=== PATIENT | female | born 1990 | race Caucasian/White ===

== ENCOUNTER → 2018-11-13 | Outpatient (CLI) | payer OTHER ==
[~2018-11-13] MED LIST: ADAL40PE4 SQ; BUTA1CAP4 PO; CYCL10TA29 PO; ETAN50DI5 SQ; OXYC-869 PO; [UNRECOGNIZED DRUG - CODE] PO
[2018-11-13 08:54] LABS: PLATELET COUNT, AUTOMATED 310 K/uL (150-450)
== END ==
LOC: LAB 07:52
PROVIDERS: ATTEND Student in an Organized Health Care Education/Training Program
DX: Z34.91 Encounter for supervision of normal pregnancy, unspecified, first trimester (principal); B96.89 Other specified bacterial agents as the cause of diseases classified elsewhere
CPT/HCPCS: 36415; 81001; 85025; 86592; 86703; 86762; 86850; 86900; 86901; 87088; 87340

== ENCOUNTER → 2019-02-11 | Outpatient (CLI) | payer OTHER ==
[~2019-02-11] MED LIST changes: +NITR-105 PO
--- NOTE | 2019-02-11 13:19 | RADIOLOGY IMAGING REPORT ---
FACILITY: [facility] PATIENT NAME: Nataly Santiago : 1990 MR: [id number] V: [id number] EXAM DATE: ORDERING PHYSICIAN: MAHI CHAMBERS TECHNOLOGIST: [place] [facility] [place]y [place] : 1990 Visit/Account:[id number] Date of Sevice: 02/11/2019 EXAMINATION: Ultrasound transabdominal OB > 14 weeks with anatomic evaluation HISTORY: 20 week anatomical survey COMPARISON: None. TECHNIQUE: Transabdominal imaging was performed for assessment of the fetus and maternal pelvic structures. T ransvaginal imaging was not performed. FINDINGS: Placenta: Anterior without previa. Uterus: Gravid, otherwise normal Cervix: Long and closed. Maternal Ovaries: Not visualized. Maternal and other adnexa findings: Not visualized Intrauterine gestations: One. presentation: Variable heart rate: Normal and regular at 143 bpm Amniotic fluid index: 9.13 cm Largest amniotic fluid pocket: 2.89 cm Gestational Parameters: BPD: 5.01 cm 21 weeks/ two days, 78% HC: 18.95 cm 21 weeks/ two days, 77% AC: 16.08 cm 21 weeks/ two days, 69% FL: 3.36 cm 20 weeks/ four days, 45% Average ultrasound age (AUA): 21 weeks/one days, DANIA 06/23/2019 Estimated gestational age by DANIA: 20 weeks/three days, DANIA 06/28/2019 Estimated weight (EFW): 387 grams +/- 57 grams EFW for DANIA: 73 percentile Anatomic Survey: Intracranial structures, 4-chamber heart, stomach, kidneys, urinary bladder, spine, 3-vessel cord and cord insertion are unremarkable. Two upper and two lower extremities visualized. Cardiac ventricula r outflow tracts, palate and lips are unremarkable in appearance. IMPRESSION: Single viable fetus in viable presentation with an estimated gestational age by measurem ents of 21 weeks and zero days. Estimated gestational age by LMP is 20 weeks and three days. Estima christi weight is 387 g consistent with the 73rd percentile Report Dictated By: Margoth Ellison MD at 02/11/2019 1:09 PM Report E-Signed By: Margoth Ellison MD at 02/11/2019 1:14 PM WSN:[email or web address]
== END ==
LOC: US 10:50
PROVIDERS: ATTEND Student in an Organized Health Care Education/Training Program
DX: Z02.9 Encounter for administrative examinations, unspecified (principal)

== ENCOUNTER → 2019-04-05 | Outpatient (CLI) | payer OTHER ==
[2019-04-05 12:36] LABS: PLATELET COUNT, AUTOMATED 275 K/uL (150-450)
== END ==
LOC: LAB 08:09
PROVIDERS: ATTEND Student in an Organized Health Care Education/Training Program
DX: Z34.92 Encounter for supervision of normal pregnancy, unspecified, second trimester (principal)
CPT/HCPCS: 36415; 82950; 85025

== ENCOUNTER → 2019-05-28 | Outpatient (CLI) | payer OTHER ==
[~2019-05-28] MED LIST changes: +BET6I IM ONLY; +DIPH0.5S2 IM; +PREN-127 PO
== END ==
LOC: LAB 12:23
PROVIDERS: ATTEND Obstetrics & Gynecology
DX: Z36.85 Encounter for antenatal screening for Streptococcus B (principal)
CPT/HCPCS: 36415; 82040; 82247; 82310; 82374; 82435; 82565; 82570; 82947; 84075; 84132; 84155; 84156; 84295; 84450; 84460; 84520; 85027; 87081

== ENCOUNTER → 2019-05-31 | Outpatient (CLI) | payer OTHER ==
--- NOTE | 2019-05-31 13:25 | RADIOLOGY IMAGING REPORT ---
FACILITY: [facility] PATIENT NAME: Nataly Santiago : 1990 MR: [id number] V: [id number] EXAM DATE: ORDERING PHYSICIAN: DARWIN EM TECHNOLOGIST: Location: [facility] Patient: Nataly Santiago : 1990 Visit/Account:[id number] Date of Sevice: 05/31/2019 EXAMINATION: Ultrasound transabdominal OB > 14 weeks with anatomic evaluation HISTORY: Hypertension COMPARISON: February 11, 2019 TECHNIQUE: Transabdominal imaging was performed for assessment of the fetus and maternal pelvic structures. T ransvaginal imaging was not performed. FINDINGS: Placenta: Anterior without previa. Uterus: Gravid, otherwise normal Cervix: Closed Maternal Ovaries: Not visualized. Maternal and other adnexa findings: Not visualized Intrauterine gestations: One. presentation: Cephalic heart rate: Normal and regular at 133 bpm Amniotic fluid index: 7.36 cm Largest amniotic fluid pocket: 3.23 cm Gestational Parameters: BPD: 9.09 cm 37 weeks/ zero days, 81% HC: 32.48 cm 36 weeks/ six days, 38% AC: 32.31 cm 36 weeks/ two days, 67% FL: 6.97 cm 35 weeks/ six days, 88% Average ultrasound age (AUA): 36 weeks/four days, DANIA 06/24/2019 Estimated gestational age by LMP: 36 weeks/zero days, DANIA 06/28/2019 Estimated weight (EFW): 2885 grams +/- 422 grams EFW for LMP: 58 percentile Anatomic Survey: Anatomic survey not performed IMPRESSION: Single viable fetus in cephalic presentation with an estimated gestational age by measur ements of 36 weeks and four days. Estimated gestational age by LMP is 36 weeks and zero days. Estimated weight is 2885 g which is consistent with the 58th percentile Report Dictated By: Margoth Ellison MD at 05/31/2019 1:11 PM Report E-Signed By: Margoth Ellison MD at 05/31/2019 1:17 PM WSN:[email or web address]
== END ==
LOC: RAD 11:01
PROVIDERS: ATTEND Student in an Organized Health Care Education/Training Program
DX: O13.9 Gestational [pregnancy-induced] hypertension without significant proteinuria, unspecified trimester (principal); O09.90 Supervision of high risk pregnancy, unspecified, unspecified trimester

== ENCOUNTER → 2019-06-04 | Outpatient (CLI) | payer OTHER ==
[~2019-06-04] MED LIST changes: +ACET-2007 PO; +CALC-521 PO; +IBUP800T37 PO; +RANI-54 PO
== END ==
LOC: LAB 08:29
PROVIDERS: ATTEND Obstetrics & Gynecology
DX: O13.3 Gestational [pregnancy-induced] hypertension without significant proteinuria, third trimester (principal); O09.93 Supervision of high risk pregnancy, unspecified, third trimester
CPT/HCPCS: 36415; 82040; 82247; 82310; 82374; 82435; 82565; 82570; 82947; 84075; 84132; 84155; 84156; 84295; 84450; 84460; 84520; 85027

== ENCOUNTER 2019-06-07 16:50 | Inpatient (IN) | payer OTHER ==
[~2019-06-07] VITALS: Ht 165.1 cm; Wt 75.7 kg
[~2019-06-07 16:50] MED LIST changes: -ACET-2007 PO; -CALC-521 PO; -IBUP800T37 PO; -RANI-54 PO
[2019-06-07] MEDS ORDERED: TERBUTALINE SULF 1 MG/ML VIAL SUBQ PRN (17:25)
[2019-06-07] MEDS ORDERED: METOCLOPRAMIDE 10 MG/2 ML SDV IVP PRN (17:25)
[2019-06-07] MEDS ORDERED: OXYTOCIN 30 UNIT/NS 500 ML 500 ML IV PRN (17:25)
[2019-06-07] MEDS ORDERED: FAMOTIDINE(*) 20MG/50ML PREMIX 50 ML IVPB PRN (17:25)
[2019-06-07] MEDS ORDERED: ceFAZolin(*) 2GM/D5W 50ML 50 ML IVPB PRN (17:25)
[2019-06-07] MEDS ORDERED: fentaNYL CITR 100 MCG/2 ML AMP IVP PRN (17:25)
[2019-06-07] MEDS ORDERED: LIDOCAINE/SOD BICARB 8.4% SYR SC PRN (17:25)
[2019-06-07] MEDS ORDERED: ZOLPIDEM TARTRATE 5 MG TAB PO PRN (17:40)
[2019-06-07] MEDS ORDERED: ACETAMINOPHEN 325 MG TAB PO PRN (17:40)
[2019-06-07] MEDS ORDERED: ONDANSETRON 4 MG/2 ML VIAL IVP PRN (17:40)
[2019-06-07] MEDS: LR(*) 1000 ML BAG 1,000 ML IV PRN (18:17)
[2019-06-07 18:20] LABS: PLATELET COUNT, AUTOMATED 300 K/uL (150-450)
[2019-06-07] MEDS ORDERED: DINOPROSTONE 10 MG INSERT PV ONE (18:30)
[2019-06-07 18:39] VITALS: BP 152/92; Ht 165.1 cm; Wt 75.7 kg
[2019-06-07] MEDS ORDERED: CALC-521 PO (19:12)
[2019-06-07] MEDS ORDERED: RANI-54 PO (19:12)
[2019-06-08] MEDS ORDERED: OXYTOCIN 30 UNIT/NS 500 ML 500 ML IV PRN (06:00)
[2019-06-08] MEDS ORDERED: BUPIVACAINE 0.25% MPF INJ EPI PRN (09:15)
[2019-06-08] MEDS ORDERED: LIDO/EPI 2% MPF 1:200,000 20ML EPI PRN (09:15)
[2019-06-08] MEDS ORDERED: BUPIVACAINE 0.5% INJ 30ML VIAL EPI PRN (09:15)
[2019-06-08] MEDS ORDERED: FENTANYL/ROPIVACAINE 100 ML BAG EPI PRN (09:15)
[2019-06-08] MEDS ORDERED: fentaNYL CITR 100 MCG/2 ML AMP IT PRN (09:15)
[2019-06-08] MEDS ORDERED: LIDOCAINE/PF 2% 200MG/10ML AMP 200 MG/10 ML AMPUL EPI PRN (09:15)
--- NOTE | 2019-06-08 09:42 | History & Physical ---
History of Present Illness Age of Patient: 29 : 1 Para or TPAL: 0 EDC per LMP: Jun 28, 2019 Estimated Gestational Age: 37.1 Chief Complaint IOL for GHTN History of Present Illness Pt is a 29 y/o @ 37-1/7 wga who presents to L&D for a scheduled IOL secondary to GHTN. Pt denies any headache, RUQ pain, or blurry vision. Good movement. No vaginal bleeding. No loss of amniotic fluid. History Patient's Blood Type: O Positive Rubella Status: Immune Group B Strep Screen: Negative Obstetrical History: GHTN diagnosed 35-01/31 wga: Betamethasone 05/31&06/01. Labs normal. Anterior placenta Past Medical History: Ankylosing Spondylitis: Humira infusions, stopped at 35 weeks. Allergies: Coded Allergies: soy (Verified Allergy, Severe, ANAPHYLAXIS, 11/26/15) tree nut (Verified Allergy, Severe, ANAPHYLAXIS, 11/26/15) Uncoded Allergies: FRUIT (Allergy, Severe, ANAPHYLAXIS, 11/26/15) Social History: S/O: Mu: waste handling technician at [employer] Denies X 3 Family History: Blood clots BROTHER OR SISTER FH: cancer FATHER (AML ) FH: heart disease PGF Med Rec Home Meds Reported Medications Ranitidine Hcl (ZANTAC) 150 Mg Tablet, 150 MG PO BID, TAB 06/07/19 Calcium Carbonate (TUMS) 300 Mg Tab.chew, 300 MG PO, TAB.CHEW 06/07/19 Vits W-Ca,Fe,Fa(<1MG) ( VITAMINS) 1 Each Tablet, 1 EACH PO DAILY, TAB 05/20/19 Adalimumab (HUMIRA) 40 Mg/0.8 Ml Pen.ij.kit, 40 MG SQ 08/25/18 Review of Systems All Systems Reviewed/Normal: Yes, Except as Noted Constitutional: No Fever, No Weight Loss, No Weight Gain, No Chills, No Night Sweats, No Other Neurological: No Syncope, No Confusion, No Weakness, No Dizziness, No Slurred Speech, No Other Eyes: No Vision Change, No Loss of Vision, No Photophobia, No Other ENT: No Hearing Loss, No Sinus Congestion, No Sore Throat, No Ear Ache, No Tinnitus, No Other Cardiovascular: No Chest Pain, No Palpitations, No Orthostatic Hypotension, No Other Respiratory: No Shortness of Breath, No Cough, No Wheezing, No Other Gastrointestinal: No Nausea, No Vomiting, No Diarrhea, No Dysphagia, No Constipation, No Early Satiety, No Hematemesis, No Hematochezia, No Melena, No Abdominal Pain, No Other Genitourinary: No Dysuria, No Hematuria, No Urinary Incontinence, No Other Musculoskeletal: No Pain, No Sprain, No Strain, No Impaired Mobility, No Other Psychiatric: No Depression, No Anxiety, No Other Exam General Exam Vital Signs Vital Signs Date Time Temp Pulse Resp B/P (MAP) Pulse Ox O2 Delivery O2 Flow Rate FiO2 06/07/19 18:39 97.5 91 16 152/92 (112) 95 Room Air General Apperance: Alert/Awake/No Acute Distress Neuro: No Gross deficits Eyes: Normal Extraocular Movement & Vison ENT: Normal Cardiovascular: Regular Rate and Rhythm Respiratory: No Respiratory Distress, Clear to Auscultation Abdomen: Soft, Non-Tender, Non-Distended, Gravid - Non-Tender : Normal Musculoskeletal: No Weakness/Pain Extremities: No Cyanosis,Clubbing or Edema Integumentary: Skin Intact without Lesions or Rash Psychological: Alert & Oriented X3, Appropriate Mood & Affect Vaginal Discharge/Fluid?: Clear Fluid Cervical Dialation: 3 Cervical Effacement (%): 75 Cervical Consistency: Soft Cervical Position: Mid Station: -2 Presentation: Vertex Uterine Contractions(Q min): 3 Uterine Contraction Strength: Moderate UC Resting Tone: Soft Fetus Feeling Movement?: Yes Estimated Weight(grams): 2800 Heart Tones: 140 Heart Tone Variabilty: Moderate FHT Accelerations: 15X15 FHT Decelerations: None Medical Decision Making Data Points Result Diagram: 06/07/19175706/[id number]/191757 Pre-Admit Course Medical Record Review: Yes VTE Prophylasis: Adult Deep Vein Thrombosis/Pulmonary: No Assessment and Plan DESIGN ENGINEER PRODUCTS Assessment: Stable DESIGN ENGINEER PRODUCTS Plan: Routine Labor/Induct Care Problems: (1) 37 weeks gestation of (2) Gestational hypertension Assessment & Plan: S/P amniotomy. Increase oxytocin to 11 mU/min. Epidural when wanted. Expect . Problem Qualifiers (1) Gestational hypertension: Trimester: third trimester Qualified Codes: O13.3 - Gestational [- induced] hypertension without significant proteinuria, third trimester MAHI CHAMBERS DO Jun 08, 2019 09:42
[2019-06-08] MEDS: LR(*) 1000 ML BAG 1,000 ML IV PRN (10:01)
[2019-06-08] MEDS: LIDOCAINE 1% LOCAL 300 MG/30ML INJ PRN ×2 (10:02→10:45)
--- NOTE | 2019-06-08 11:56 | Anesthesia OB Pre-Anes Eval ---
History of Present Illness Anesthesia Start Date: Jun 08, 2019 Anesthesia Start Time: 09:23 OB Anesthesia Diagnosis: gestational hypertension, induction - medical, other (Ankylosing Spondylitis) Current Complication: gestational hypertention Complications: no EDC: Jun 28, 2019 : 1 Para: 0 Vital Signs: 141/82 BP 82 HR 95% O2 sat Pain Ratin Heart Tones: normal Result Diagram: 06/07/19 1758 06/07/19 1758 Height (Inches): 65.00 Weight (Pounds): 167 Past Medical History Medical History: other (Ankylosing Spondylitis (on Humira- stopped 1.5 weeks ago)) Surgical History: noncontributory, other (Loris Teeth) Hx Anesthesia Reactions: No Hx Family Anesthesia Reaction: No Current Medications: pitocin, other (Cervedil) Home Meds Reported Medications Ranitidine Hcl (ZANTAC) 150 Mg Tablet, 150 MG PO BID, TAB 06/07/19 Calcium Carbonate (TUMS) 300 Mg Tab.chew, 300 MG PO, TAB.CHEW 06/07/19 Vits W-Ca,Fe,Fa(<1MG) ( VITAMINS) 1 Each Tablet, 1 EACH PO DAILY, TAB 05/20/19 Adalimumab (HUMIRA) 40 Mg/0.8 Ml Pen.ij.kit, 40 MG SQ 08/25/18 Allergies: Coded Allergies: soy (Verified Allergy, Severe, ANAPHYLAXIS, 11/26/15) tree nut (Verified Allergy, Severe, ANAPHYLAXIS, 11/26/15) Uncoded Allergies: FRUIT (Allergy, Severe, ANAPHYLAXIS, 11/26/15) Anesthesia OB ROS Neurological: other ("rotated spine / ankylosing spondylitis"); No migraines/headaches, No seizures, No neuropathy Eyes ROS: other (uses glasses) ENT: Denies Tooth caps, Denies Loose teeth, Denies Chipped teeth, Denies Dentures, Denies Bridges, Denies Retainers, Denies Veneers, Denies Implants, Denies Tongue ring, Denies Other Pulmonary: No asthma, No smoker (pks/day/yrs), No other Airway Class: ll Cardiovascular ROS: No edema, No arrhythmia, No other GI ROS: clear liquids Last Solids Date: Jun 07, 2019 Last Solids Time: 23:00 ROS: No Herpes, No STD(s), No Liver Disease, No Renal Disease, No Other Endocrine ROS: No diabetes, No gestational diabetes, No thyroid disorder, No other Musculoskeletal ROS: other (Ankylosing Spondylitis) ASA Classification: 3 Assessment and Plan Anesthesia Plan: LEB Assessment: Heart: RRR, no MRG, no edema, no CP/SOB/Syncope Resp: CTA bilaterally Neuro: denies numbness,tingling,paresthesias,pain SERGIO CALABRESE CRNA Jun 08, 2019 11:56
--- NOTE | 2019-06-08 12:11 | Procedure Note ---
Anesthetic Placement Note Anesthesia Plan: LEB Permit for Anesthesia Signed: Yes Anesthesia Technique: Patient Sitting Anesthesia Prep: Chlorhexidine (Betadine also used since no dye/tint in chlorhexidine) Interspace: L 2-3 Local Anesthetic: 1% Lidocaine, 25 Gauge Needle Amount Local - cc's: 4 Anesthesia Needle: 17g Touhy/Schliff Anesthesia Attempts: 2 (started at L3-4 but unable to access space (hitting bone). Moved to L2-3 with easy location of epidural space) Loss of Resistance: Normal Saline Depth of CITLALLI (cm): 5 Epidural Needle Placement: No CSF, No Blood, No Parasthesia Catheter Insertion (cm): 6 (Catheter secured 11 cm at skin) Catheter Type: Stout - Spring Wound Epidural Dressing: Tegaderm, Tape (Mefix), Other (Benzoin) Anesthesia Tray: Lot Number ([id number]), Expiration Date (04/25/2020), Reference Number ([id number]) Comment: Tolerated well. cooperated very well Anesthesia Medications: Epidural Test Dose: 1.5 Lido/Epi (1:200,000), Dose - mL (3), Time (0945), Negative Epidural Loading Dose: Dose - ml (6), Time (0948), Other (6 mL of infusion solution given at 0956 with pump start) Epidural Infusion: 0.2% Ropivicaine, With Fentanyl 2mcg/ml, Start Time: (0956) Epidural Pump Setting: Bolus Dose - mL (6), Lockout - Minutes (15), Maintenance Rate - mL/hr (5), Maximum per Hour - mL (23) Complications: None SERGIO CALABRESE CRNA Jun 08, 2019 12:11
--- NOTE | 2019-06-08 12:19 | Anesthesia Progress Note ---
Progress/Maintenance Anesthesia Note Date: Jun 08, 2019 Anesthesia Note Time: 11:20 Pain Intensity: 0 Pump: Off Sensory Level: T10-11 Motor Level: Bending Knees-Bilateral Assessment and Plan Assessment: At 10:10 pt stilll with right sided window of pain (currently lying on left side). Planned to move to right side but patient feeling urge to push, etc. See RN notes. Only 11 mL of epidural solution infused total. Anesthesia Stop Day: Jun 08, 2019 Anesthesia Stop Time: 10:32 Epidural Catheter Removal: Removed Catheter Intact, Yes, Removed by: (RN (see RN notes)) Removal Date: Jun 08, 2019 SERGIO CALABRESE CRNA Jun 08, 2019 12:18
[2019-06-08] MEDS ORDERED: ACETAMINOPHEN 325 MG TAB PO PRN (12:50)
[2019-06-08] MEDS ORDERED: APAP/HYDROCODONE 325/5 TAB PO PRN (12:50)
[2019-06-08] MEDS ORDERED: MAGNESIUM HYDROXIDE* 30ML UDCP PO PRN (12:50)
[2019-06-08] MEDS ORDERED: INFLUENZA VIRUS VAC 0.5ML SYR IM ONLY ONE (12:50)
[2019-06-08] MEDS ORDERED: BENZOCAINE 20% 60 ML BTL TP PRN (12:50)
[2019-06-08] MEDS ORDERED: GLYCERIN/WITCH HAZEL LEAF 1 PK TP PRN (12:50)
[2019-06-08] MEDS ORDERED: HYDROCORTISONE 2.5% CR 30GM TB PR PRN (12:50)
[2019-06-08] MEDS ORDERED: LANOLIN OINT 7 GM TUBE TP PRN (12:50)
[2019-06-08 13:00] VITALS: BP 120/77
[2019-06-08 14:15] VITALS: BP 132/74
[2019-06-08] MEDS: IBUPROFEN 800 MG TAB PO SCH ×2 (14:20→21:52)
--- NOTE | 2019-06-08 15:05 | OB Delivery Note ---
Delivery Note Vaginal Delivery Type: Vacuum Delivery Date: Jun 08, 2019 Delivery Time: 10:32 Estimated Gestational Age(wks): 37.1 Indication (if vag op): Recurring prolonged decelerations after each contraction Length of Labor Stage I (hrs): 3 Length of Labor Stage II (hrs): 0.5 Labor Stage III (minutes): 5 Delivery Anesthesia: Local (15 cc 1 % lidocaine) Infant Sex: Female Infant Weight (gms): 3135 (6#15oz) [place] Apgars: 1 Minute (9), 5 Minute (9) Repair Needed: Laceration, 2nd Degree Delivery Complications: Precipitous, Other (True knot in the umbilical cord) Rustic Fence Builder in Attendence: MAHI Reina DO Jun 08, 2019 15:05
--- NOTE | 2019-06-08 16:05 | DELIVERY NOTE ---
DELIVERY DATE: June 08, 2019 SURGEON: Mark Braswell DO ANESTHESIA: Epidural and 15 mL of 1% lidocaine for local for repair. PREOPERATIVE DIAGNOSES 1. A 29-year-old 1, para 0, at 37-1/7 weeks' gestation. 2. Gestational hypertension. 3. Induction of labor. POSTOPERATIVE DIAGNOSES 1. A 29-year-old 1, para 0, at 37-1/7 weeks' gestation. 2. Gestational hypertension. 3. Induction of labor. 4. Delivered. PROCEDURE Vacuum-assisted vaginal delivery secondary to prolonged decelerations with each contraction with minimal descent of head. FINDINGS Live-born female at 1032 of 06/08/2019 with Apgars of 9 and 9, weighing 6 pounds 15 ounces, 3135 g. Three-vessel cord with a true knot in the umbilical cord. Intact placenta over a second-degree midline laceration with bilateral sidewall lacerations. ESTIMATED BLOOD LOSS 100 mL. PATHOLOGY None. COMPLICATIONS None known. CONDITION Stable times two. Mother and infant to remain in LDRP. COUNTS Correct for all needles, laps, sponges, and instruments. LABOR COURSE Patient is a 29-year-old 1, para 0, at 37-1/7 weeks' gestation, presented for induction of labor secondary to gestational hypertension. She was initially checked and found to have a cervix of 1 cm. She had a Cervidil placed overnight and progressed to 3 cm. She was then started on oxytocin and underwent amniotomy just before 9 a.m. with oxytocin continued. Requested an epidural. Did receive her epidural, but transitioned very quickly through labor at that point to the point of having the urge to push. Patient was checked and was noted to be complete at that time. At this time, it was noted that there were prolonged decelerations lasting three to four minutes into the 70s. station was +2. Maternal effort was good with a significant urge to push at the time of delivery. Team was called and assembled. DELIVERY SUMMARY Patient was placed in dorsal lithotomy position. With maternal effort, there was noted descent of the head and change in station. Secondary to the prolonged decelerations, the patient was counseled for a vacuum-assisted vaginal delivery. Patient understood the greatest risk was increasing laceration for her as well as a cephalohematoma for the baby or bruising or skin laceration. Patient understands the risks of a vacuum and desired to proceed accordingly. The bladder was drained. The cervix was checked and noted to be complete. The vacuum was placed in the posterior aspect of the vagina 2 cm away from the posterior fontanel. With onset of contraction, the vacuum was applied with the pressure in the green zone of the Kiwi vacuum. With the vacuum applied, traction was applied. With maternal effort, there was significant change in station with the first pull to the point that the infant's station was +4. Contractions stopped. The vacuum suction was removed. With the onset of the next contraction, vacuum suction was again applied with traction applied. With the first part of the contraction, the maternal effort and contraction from the vacuum allowed delivery to the chin. With the chin delivered, the vacuum was removed from the infant's scalp. The was in the RADHA position and completely restituted. With the vacuum removed, gentle motion downward was used to deliver the anterior shoulder, while upward motion delivered the posterior shoulder. The remainder of the 's body delivered spontaneously. It was placed on maternal abdomen where mouth and nose were bulb suctioned. The infant was vigorously cleaned by nursing staff. At this point after approximately two minutes, the cord was clamped times two and cut by the infant's father. Cord blood gases were obtained. The placement delivered with gentle traction. Oxytocin was induced with uterine tone. Uterus was massaged and deemed firm. Upon inspection of the perineum, vagina, cervix, and labia, it was noted that there were bilateral sidewall lacerations and a second-degree midline laceration. The sidewall lacerations were repaired using a 3-0 Vicryl in a running manner. The second-degree midline laceration was repaired using a 3-0 Vicryl in the usual manner. At this point, lacerations were inspected, and they were hemostatic with good reapproximation. The patient was then cleaned and transferred to the recovery room in stable condition. CAMPBELL
[2019-06-08 19:10] VITALS: BP 118/70
[2019-06-08] MEDS: DOCUSATE CALCIUM 240 MG CAP PO SCH (20:20)
[2019-06-08 23:11] VITALS: BP 137/80
[2019-06-09 02:52] VITALS: BP 126/77
[2019-06-09] MEDS: IBUPROFEN 800 MG TAB PO SCH ×2 (05:16→14:14)
[2019-06-09 07:45] VITALS: BP 112/78
[2019-06-09] MEDS ORDERED: DIPHTH/TETANUS/ACEL. PERTUSSIS IM ONLY ONE (09:00)
[2019-06-09] MEDS ORDERED: MEASLES,MUMP,RUBELLA VAC 0.5ML SUBQ ONE (09:00)
--- NOTE | 2019-06-09 09:30 | Anesthesia Post Eval Note ---
Anesthesia Post Eval Note Normal. See RN charting Pt able to participate in Eval: Yes Cardiovascular Status: Satisfactory Respiratory Status: Satisfactory Pain Managment: Satisfactory PO Nausea/Vomiting: Satisfactory Temperature Management: Satisfactory Mental Status: Satisfactory, Alert, Oriented X3 Post-Op Hydration Status: Satisfactory, Tolerating PO Well, Voiding w/o Difficulty Anesthesia Type: LEB Anesthesia Tolerance: Neuro exam normal. Pt reports no evidence of complications from epidural other than minor superficial injection site pain. SERGIO CALABRESE INSECTICIDE MAKER Jun 09, 2019 09:30
[2019-06-09] MEDS: DOCUSATE CALCIUM 240 MG CAP PO SCH (09:50)
--- NOTE | 2019-06-09 10:52 | OB/GYN Progress Note ---
OB Subjective Progress Notes Subjective Doing good this morning. Reports only pain is along her tear. Tolerating Ibuprofen and Tylenol for pain control, hasn't required Narcotic pain control. Ambulatory. Voiding with out any difficulty. Tolerating regular diet. Lochia appropriate GI: NEG Nausea, NEG Vomiting, NEG Flatus, NEG Bowel Movement : Voiding Well Pain: Mild Neurological: No Headache, No Other Eyes: No Visual Disturbances OB Objective Physical Exam Vital Signs Date Time Temp Pulse Resp B/P (MAP) Pulse Ox O2 Delivery O2 Flow Rate FiO2 06/09/19 07:45 97.5 75 16 112/78 (89) 06/08/19 14:15 95 Room Air Intake and Output 06/09/19 07:04 Intake Total 2000 ml Output Total 1550 ml Balance 450 ml IV Total 2000 ml Output Urine Total 1550 ml # Voids 3 General Appearance: Alert/Awake/No Acute Distress Neurological: No Gross deficits Eyes: Normal Extraocular Movement & Vison Respiratory: No Respiratory Distress, Clear to Auscultation Abdomen: Soft, Non-Tender, Non-Distended, Fundus Firm Extremities: No Cyanosis,Clubbing or Edema Integumentary: Skin Intact without Lesions or Rash Psychological: Alert & Oriented X3, Appropriate Mood & Affect Result Diagram: 06/09/19 0627 06/07/19 1758 Assessment and Plan CAREER PLACEMENT SPECIALIST Plan: Routine Post- Care Problems: (1) 37 weeks gestation of Status: Resolved Assessment & Plan: Will plan for discharge today. (2) Gestational hypertension Status: Resolved Problem Qualifiers (1) Gestational hypertension: Trimester: third trimester Qualified Codes: O13.3 - Gestational [- induced] hypertension without significant proteinuria, third trimester MAHI CHAMBERS DO Jun 09, 2019 10:52
[2019-06-09] MEDS ORDERED: IBUP800T37 PO (10:55)
[2019-06-09] MEDS ORDERED: ACET-2007 PO (10:55)
--- NOTE | 2019-06-09 10:57 | OB/GYN Discharge Summary ---
Discharge Summary Reason for Hosp/Final Diag: (1) 37 weeks gestation of Status: Resolved (2) Gestational hypertension Status: Resolved Lates Vital Signs Vital Signs Date Time Temp Pulse Resp B/P (MAP) Pulse Ox O2 Delivery O2 Flow Rate FiO2 06/09/19 07:45 97.5 75 16 112/78 (89) 06/08/19 14:15 95 Room Air Weight (Pounds): 167 Result Diagram: 06/09/19 0627 06/07/19 9868 Condition: Improved Discharge: Home Home Meds Reported Medications Ranitidine Hcl (ZANTAC) 150 Mg Tablet, 150 MG PO BID, TAB 06/07/19 Calcium Carbonate (TUMS) 300 Mg Tab.chew, 300 MG PO, TAB.CHEW 06/07/19 Vits W-Ca,Fe,Fa(<1MG) ( VITAMINS) 1 Each Tablet, 1 EACH PO DAILY, TAB 05/20/19 Adalimumab (HUMIRA) 40 Mg/0.8 Ml Pen.ij.kit, 40 MG SQ 08/25/18 Follow up with: [facility] [phone], Dr. Braswell [phone] Follow up in: 6 wks PP or PO, 2 wks PO Discharge Diet: As Tolerates Discharge Activity: As Tolerates, Pelvic Rest Problem Qualifiers (1) Gestational hypertension: Trimester: third trimester Qualified Codes: O13.3 - Gestational [- induced] hypertension without significant proteinuria, third trimester MAHI BRASWELL DO Jun 09, 2019 10:57
[2019-06-09 13:11] VITALS: BP 125/89
== END 2019-06-09 14:47 | disposition home or self-care (01) | DRG 807 ==
LOC: OB 16:50
PROVIDERS: ADMIT Student in an Organized Health Care Education/Training Program; ATTEND Student in an Organized Health Care Education/Training Program
PROC: 10D07Z6 Extraction of Products of Conception, Vacuum, Via Natural or Artificial Opening (ICD-10-PCS; principal; 2019-06-08)
PROC: 0KQM0ZZ Repair Perineum Muscle, Open Approach (ICD-10-PCS; 2019-06-08)
PROC: 3E033VJ Introduction of Other Hormone into Peripheral Vein, Percutaneous Approach (ICD-10-PCS; 2019-06-08)
PROC: 10907ZC Drainage of Amniotic Fluid, Therapeutic from Products of Conception, Via Natural or Artificial Opening (ICD-10-PCS; 2019-06-08)
PROC: 0UQGXZZ Repair Vagina, External Approach (ICD-10-PCS; 2019-06-08)
DX: O13.3 Gestational [pregnancy-induced] hypertension without significant proteinuria, third trimester (principal); Z37.0 Single live birth; O70.1 Second degree perineal laceration during delivery; O62.3 Precipitate labor; O76 Abnormality in fetal heart rate and rhythm complicating labor and delivery; O99.89 Other specified diseases and conditions complicating pregnancy, childbirth and the puerperium; O71.89 Other specified obstetric trauma; O69.1XX0 Labor and delivery complicated by cord around neck, with compression, not applicable or unspecified; M45.9 Ankylosing spondylitis of unspecified sites in spine; Z3A.37 37 weeks gestation of pregnancy
CPT/HCPCS: 36415; 82040; 82247; 82310; 82374; 82435; 82565; 82570; 82947; 84075; 84132; 84155; 84156; 84295; 84450; 84460; 84520; 85025; 85027; 86850; 86900; 86901; J2001; J2405; J2590; J7120